=== PATIENT | male | born 1955 | race Caucasian/White ===

== ENCOUNTER → 2019-07-31 | Day surgery (SDC) | payer OTHER ==
--- NOTE | 2019-07-29 22:44 | Pre Op History & Physical ---
DATE OF SURGERY: July 31, 2019. CHIEF COMPLAINT: Chronic sinusitis, nasal obstruction, bilateral eustachian tube dysfunction, and chronic otitis media. HISTORY OF PRESENT ILLNESS: This 64-year-old male with history of nasal polyposis. The patient has a longstanding history of nasal obstruction, postnasal drip discharge from his nose. Nasal obstruction is worse on bilaterally. The patient has postnasal drip and frontal maxillary pain. He also has sore throat. The patient also has history of fullness in his ears. He has been treated with antibiotics topical nasal steroid decongestant for more than 12 weeks along with sinus irrigation with no improvement of the condition. The patient had endoscopic sinus surgery, the last one was in July 2017, and then in November 2011, he had bilateral myringotomy tubes and endoscopic sinus surgery. CT scan of paranasal sinuses done before surgery in June 2019, showed the patient has chronic sinusitis with left side involvement of the ethmoid sinus, frontal sinus involvement, and maxillary sinus involvement. The right side show ethmoid sinus involvement with maxillary sinus involvement on the right with no involvement of the sphenoid sinus. The CT scan of sinuses also show opacification of the mastoid cavity, worse on the right side. Septal spur was noted on the left side on the CAT scan. REVIEW OF SYSTEMS: System review showed no recent cardiovascular, respiratory, or GI problem. PAST MEDICAL HISTORY: The patient has a history of type 2 diabetes, hypertension, and rheumatoid arthritis. PAST SURGICAL HISTORY: The patient has previous sinus surgery x2 with previous bilateral myringotomy and tubes, back surgery, and carpal tunnel release. ALLERGIES: HE HAS NO KNOWN ALLERGY TO MEDICATION. MEDICATIONS: He is on, tramadol, allopurinol, Naprosyn, methotrexate, folic acid, gabapentin, omega-3, Xigduo, hydroxychloroquine, amlodipine, esomeprazole, olmesartan-HCTZ, atorvastatin, Synthroid, aspirin, glimepiride, and pioglitazone, SOCIAL HISTORY: Nonsmoker and a social drinker. FAMILY HISTORY: Noncontributory. PHYSICAL EXAMINATION: VITAL SIGNS: The patient's vital signs were within normal limits. HEENT: Ear exam showed normal tympanic membrane bilaterally. Nasal exam showed hypertrophy of inferior turbinates. Oropharynx and oral cavity show no obvious abnormality. NECK: Showed no lymph node or thyroid palpable. CHEST: Showed good air entry bilaterally. CARDIOVASCULAR: Showed S1, S2. No murmur noted. ASSESSMENT AND PLAN: Mr. Beck has chronic sinusitis, nasal obstruction, otitis media worse on the right side, which is resistant to conservative therapy. The suggested treatment is endoscopic sinus surgery, septoplasty, resection of inferior turbinate, bilateral myringotomy and tubes and other necessary procedure. Complication of procedure includes, but not limited to bleeding, infection, CSF leak, blindness, double vision, meningitis, septal perforation, septal hematoma, persistent nasal obstruction, persistent nasal crusting, nasal deformity, recurrence of the sinus problem along with TM perforation, persistent drainage from the ear, hearing loss, recurrence of the ear infection. Alternatives will be continue observation, continue antibiotic therapy, topical nasal steroid therapy, systemic steroid therapy decongestant. The patient has elected to undergo surgical procedure. He has been advised to stop his aspirin and Naprosyn for at least 7 to 10 days before surgery. MD INES Hdez/HERIBERTOL /[id number]
[~2019-07-31] MED LIST: ACETAMINOPHEN 1000 MG/100 ML IV ONE; ALLOPURINOL100 MG PO; AMLODIPINE BESY10 MG PO; ATORVASTATIN CA20 MG PO; BASAGLAR K100 UNIT/1 SC; BENICAR HCT 401 EACH PO; DEXAMETHASONE SOD PHOS 10 MG/1 ML VIAL ONE; DEXAMETHASONE SOD PHOS INJ 4 MG/ML VIAL ONE; EPINEPHRINE HCL 1:1000 1ML 1 MG/ML AMP ONE; ETOMIDATE 2 MG/ML 10 ML INJ IV ONE; FENTANYL CITRATE/PF 100MCG/2 ML INJ ONE; FOLIC ACID0.4 MG PO; GABAPENTIN300 MG PO; GLIMEPIRIDE2 MG PO; GLYCOPYRROLATE INJ 0.2 MG/ML VIAL ONE; HYDROMORPHONE 1MG/1ML INJ ONE; HYDROXYCHLOROQ200 MG PO; LEVOTHYROXINE50 MCG PO; LIDOCAINE 1% W/EPINEPHRINE 20 ML VIAL ONE; LIDOCAINE HCL 2% LOCAL INJ 5 ML SDV VIAL INJ ONE; MIDAZOLAM HCL 2 MG/2 ML VIAL ONE; NEOSTIGMINE 1 MG/ML 10ML VIAL ONE; NEXIUM40 MG PO; OFLOXACIN 0.3% (OTIC SOL) 5 ML BTL ONE; OMEGA 3 1,0001 EACH PO; ONDANSETRON HCL INJ 2MG/ML 2ML 2 MG/ML VIAL ONE; PIOGLITAZONE HC45 MG PO; ROCURONIUM BROMIDE 10 MG/ML 5ML VIAL IV ONE; SEVOFLURANE INHAL SOLN 250 ML PEN BTL ONE; TRULICITY0.75 MG/0. SQ; ULTRAM50 MG PO; XIGDUO XR 5 MG1 EAC1 PO
[2019-07-31 10:05] VITALS: BP 142/74
--- NOTE | 2019-07-31 11:19 | Operative Report ---
DATE OF PROCEDURE: 07/31/2019 SURGEON: Devante Chawla MD CHIEF COMPLAINT: Chronic sinusitis, nasal obstruction, recurrent otitis media. POSTOPERATIVE DIAGNOSES: Chronic sinusitis, nasal obstruction, recurrent otitis media. OPERATIVE PROCEDURES: Left exploration of nasal of nasal frontal recess area, bilateral anterior and posterior ethmoidectomy, bilateral maxillary sinus antrostomy with resection of inflamed tissue in the maxillary antrum, bilateral myringotomy and tubes. ANESTHESIA: [facility]esthesiology Group. INDICATIONS: This 64-year-old male has history of chronic sinusitis. The patient also has recurrent otitis media. He had previous endoscopic sinus surgery x2 with one bilateral myringotomy and tubes previously. The patient's last endoscopic sinus surgery was in 2018, he was doing well until the past few months. He has been treated with multiple antibiotics with no improvement. The patient also has fullness in the ear. The patient has been on more than 12 weeks of antibiotics recently. He also was given nasal spray, decongestant, and sinus irrigation. On examination, he was noted to have inflamed tissue in both nasal cavities and with inflamed mucosa. He was noted to have negative pressure in both ears, worse on the left. An audiogram that was done showed the patient has [id number] high-frequency sensorineural hearing loss. CT scan of paranasal sinuses done before surgery showed the patient has involvement of the left frontal sinus, bilateral involvement of the ethmoid sinuses, one side worse on the anterior, the other side worse on the posterior, ethmoid sinus cavity and maxillary sinus involvement on both sides. Effusion was noted in the middle ear cleft. It was decided that endoscopic sinus surgery, bilateral myringotomy and tubes, and other necessary procedure will be beneficial for him. DESCRIPTION OF PROCEDURE: The patient was taken to operating room, put under general anesthesia, endotracheally intubated. The nose was injected with 1% Xylocaine with 1:100,000 epinephrine for hemostasis. Epinephrine-soaked pledget was inserted in nose and subsequently removed. The left paranasal sinuses were approached first. Middle turbinate was medialized. Inflamed tissue was noted at both anterior and posterior ethmoid sinus area. Some scarring was also noted in the ethmoid sinus cavity. Using the microshaver, the anterior and posterior ethmoid sinuses were dissected in systematic fashion. Care was taken during dissection to ascertain, although it was not entered. The anterior ethmoid sinuses were dissected, the frontal sinus punch to open up the nasal frontal recess region with examination of the nasal frontal recess area. The inflamed tissue was noted and this was dissected using a microshaver. Using a curved probe, the natural ostia of the maxillary sinus was entered. This was filled up with mucoid, mucopus, and inspissated pus material. This was suctioned out in a piecemeal fashion. Using 120-degree tip of micro shaver, the remaining part of the inflamed tissue was dissected off. The inspissated pus was cultured and sent for anaerobic, aerobic, AFB, and fungal culture. Using a 45-degree telescope, maxillary sinus antrum was re-examined to ascertain that all the inspissated pus has been removed. The right paranasal sinuses were approached. The middle turbinate was medialized. Using a microshaver, anterior and posterior ethmoid sinuses were dissected in systematic fashion. Scarring was noted in the anterior ethmoid sinus area and inflamed tissue was noted both anterior and posterior ethmoid sinus area. Care was taken during dissection to ascertain that the orbit was not entered. The nasal frontal recess drainage area was noted to be intact. The maxillary sinus was examined, again inspissated pus was noted in the right maxillary antrum, this was suctioned out. The extent of the maxillary sinus involvement is more severe on the left compared to the right side. Using 120-degree tip of the microshaver, this was dissected off. Nasopharynx was re-examined, no other abnormality was noted. The NasoPore was inserted in sinus cavities on either side. This was done to prevent synechiae formation and for hemostasis. The bilateral myringotomy tubes were performed. The right ear was examined. The ear canal was debrided. Myringotomy was done in the anterior superior quadrant. No effusion was noted in middle ear cleft. Pedraza grommet tube was inserted. Similar procedure was carried on the left side, again after the ear canal was debrided, the myringotomy was done in the anterior superior quadrant, serous effusion was suctioned out. Pedraza grommet tube was inserted. The patient tolerated the above procedure well. Estimated blood loss was about 30 mL. He was able to be transferred to recovery room in stable condition. MD INES Hdez/HERIBERTOL /[id number]
== END | disposition home or self-care (01) ==
LOC: OR 05:44
PROVIDERS: ATTEND Otolaryngology Otolaryngology/Facial Plastic Surgery
DX: J32.0 Chronic maxillary sinusitis (principal); J34.89 Other specified disorders of nose and nasal sinuses; H65.22 Chronic serous otitis media, left ear; J32.2 Chronic ethmoidal sinusitis; J32.8 Other chronic sinusitis; B96.89 Other specified bacterial agents as the cause of diseases classified elsewhere; H90.3 Sensorineural hearing loss, bilateral; E11.9 Type 2 diabetes mellitus without complications; E03.9 Hypothyroidism, unspecified; K21.9 Gastro-esophageal reflux disease without esophagitis; M06.9 Rheumatoid arthritis, unspecified; R05 Cough; G47.33 Obstructive sleep apnea (adult) (pediatric); I10 Essential (primary) hypertension; E78.5 Hyperlipidemia, unspecified; Z01.810 Encounter for preprocedural cardiovascular examination; Z01.812 Encounter for preprocedural laboratory examination; Z11.59 Encounter for screening for other viral diseases; Z79.84 Long term (current) use of oral hypoglycemic drugs; Z79.4 Long term (current) use of insulin; Z86.73 Personal history of transient ischemic attack (TIA), and cerebral infarction without residual deficits
CPT/HCPCS: 31255; 31267; 31276; 36415; 69436; 82948; 87071; 87075; 87102; 87186; 87205; 87206; 87635; 88305; 88312; 93005; J0131; J0171; J1100; J1170; J2001; J2250; J2405; J2710; J3010

== ENCOUNTER → 2021-11-03 | Day surgery (SDC) | payer MEDICARE, BC ==
[~2021-11-03] MED LIST changes: -ACETAMINOPHEN 1000 MG/100 ML IV ONE; +ASPIRIN81 MG PO; +CIMZIA400 MG/2 M SC; -DEXAMETHASONE SOD PHOS 10 MG/1 ML VIAL ONE; +DEXAMETHASONE SOD PHOS INJ 4 MG/ML SDV IV ONE; -DEXAMETHASONE SOD PHOS INJ 4 MG/ML VIAL ONE; -ETOMIDATE 2 MG/ML 10 ML INJ IV ONE; -GLYCOPYRROLATE INJ 0.2 MG/ML VIAL ONE; -HYDROMORPHONE 1MG/1ML INJ ONE; +METHOTREXA25 MG/1 ML SC; -NEOSTIGMINE 1 MG/ML 10ML VIAL ONE; +ONDANSETRON HCL INJ 2MG/ML 2ML 2 MG/ML VIAL IV ONE; -ONDANSETRON HCL INJ 2MG/ML 2ML 2 MG/ML VIAL ONE; +POVIDONE IODINE 0.05% 0.05 % ML PO ONE; +PROPOFOL IV EMULSION 10 MG/ML 20 ML VIAL IV ONE; +SEVOFLURANE INHAL SOLN 250 ML PEN BTL INH ONE; -SEVOFLURANE INHAL SOLN 250 ML PEN BTL ONE
[2021-11-03 12:45] VITALS: BP 125/74
== END | disposition home or self-care (01) ==
LOC: OR 08:00
PROVIDERS: ATTEND Otolaryngology Otolaryngology/Facial Plastic Surgery
DX: J32.0 Chronic maxillary sinusitis (principal); J32.2 Chronic ethmoidal sinusitis; J32.3 Chronic sphenoidal sinusitis; J34.89 Other specified disorders of nose and nasal sinuses; H65.23 Chronic serous otitis media, bilateral; J02.9 Acute pharyngitis, unspecified; I10 Essential (primary) hypertension; E78.5 Hyperlipidemia, unspecified; E11.9 Type 2 diabetes mellitus without complications; M06.9 Rheumatoid arthritis, unspecified; Z79.82 Long term (current) use of aspirin; Z79.4 Long term (current) use of insulin; Z79.899 Other long term (current) drug therapy; Z86.73 Personal history of transient ischemic attack (TIA), and cerebral infarction without residual deficits
CPT/HCPCS: 31259; 31267; 36415; 69436; 71046; 82948; 88304; 93005; J0171; J1100; J2001; J2250; J2405; J2704; J3010